=== PATIENT | male | born 1960 | race Caucasian/White ===

== ENCOUNTER 2016-10-27 12:37 | Emergency (ER) | payer BC ==
[~2016-10-27 12:37] MED LIST: ATOR10 PO; DOXY100T PO; ROSU5 PO; SULF-154 PO; TRELSTAR; ZYRT1SYP PO
[2016-10-27 12:45] VITALS: BP 152/92; PULSE 78; RESP 16; TEMP 98.3; O2SAT 96
[2016-10-27] MEDS ORDERED: CYMB60CA PO (12:53)
[2016-10-27] MEDS ORDERED: [UNRECOGNIZED DRUG - OTHER] (12:53)
[2016-10-27] MEDS ORDERED: AMBI10TA PO (12:53)
[2016-10-27] MEDS ORDERED: LUPR3.75 IM (12:53)
--- NOTE | 2016-10-27 12:57 | PD ---
HPI Chief Complaint: Laceration/Skin Injury Time Seen by Provider: 12:52 Travel History International Travel<30 days: No Contact w/Intl Traveler<30days: No Traveled to known affect area: No History of Present Illness HPI 56-year-old male presents to the emergency room for evaluation of left thumb laceration that occurred just prior to arrival. Patient was using a kitchen knife when he missed and cut his thumb. He immediately applied pressure and came to the emergency room. Reports moderate pain. Moderate bleeding. Unknown last tetanus. PFSH Past Medical History Cancer: Yes (PROSTATE) High Cholesterol: Yes Past Surgical History Abdominal Surgery: Yes (HERNIA X 2) Tonsillectomy: Yes Other Surgery: Yes (PENILE IMPLANT) Social History Alcohol Use: No Tobacco Use: No Substance Use: No Allergies-Medications (Allergen,Severity, Reaction): Coded Allergies: No Known Allergies (Verified , PER [facility] HOLDING, 10/27/16) Reported Meds & Prescriptions Reported Meds & Active Scripts Active Reported Lupron Depot Inj Kit (Leuprolide Acetate) 3.75 Mg Kit Unknown Dose IM ONCE Cymbalta DR (Duloxetine HCl) 60 Mg Capdr 90 Mg PO DAILY Ambien (Zolpidem Tartrate) 10 Mg Tab 12.5 Mg PO HS PRN [Exntend Eye] Review of Systems Except as stated in HPI: all other systems reviewed are Neg Physical Exam Narrative GENERAL: Well-nourished, well-developed male in no acute distress. Afebrile. Ambulatory. SKIN: Focused skin assessment warm/dry. There is a 1 cm curvilinear avulsion laceration to the left distal thumb. No nail involvement. HEAD: Normocephalic. EYES: No scleral icterus. No injection or drainage. NECK: Supple, trachea midline. No JVD or lymphadenopathy. CARDIOVASCULAR: Regular rate and rhythm without murmurs, gallops, or rubs. RESPIRATORY: Breath sounds equal bilaterally. No accessory muscle use. MUSCULOSKELETAL: No cyanosis, or edema. Less than 2 second capillary refill distally. Full range of motion of the left hand. Data Data Last Documented VS Vital Signs Date Time Temp Pulse Resp B/P (MAP) Pulse Ox O2 Delivery O2 Flow Rate FiO2 10/27/16 12:45 98.3 78 16 152/92 (112) 96 Room Air Orders Orders Bupivacaine Pf 0.5% Inj (Marcaine Pf 0.5 (10/27/16 13:00) Lidocaine 1% Inj (50 Ml) (Xylocaine 1% I (10/27/16 13:00) Tetanus/Diphtheria Tox Adult (Tetanus/Di (10/27/16 13:00) MDM Medical Decision Making Medical Screen Exam Complete: Yes Emergency Medical Condition: Yes Medical Record Reviewed: Yes Differential Diagnosis Laceration, avulsion, abrasion Narrative Course 56-year-old male presents to the emergency room for evaluation of laceration to his left thumb that occurred just prior to arrival. Patient accidentally cut himself with a kitchen knife. Tetanus was updated in the ER. Wound was thoroughly cleansed and repaired, see procedure note for details. Patient discharged with wound care instructions and told to follow-up with a PCP as needed and return for worsening symptoms. He understands and agrees to plan. Procedures Procedure Narrative LACERATION LOCATION: Left distal thumb LENGTH: 1 cm curvilinear NUMBER OF STITCHES/DARI: 4 simple interrupted REPAIR: The area of the laceration was prepped with Betadine and sterilely draped. Digital block was performed with 50/50 combination of 1% lidocaine and 0.5% bupivacaine. The wound was copiously irrigated and explored without evidence of foreign body, tendon injury or neurovascular injury. The wound was closed using 5-0 Prolene. This was a single layer repair. A sterile dressing was applied. The patient was advised to keep the dressing clean and dry. Patient tolerated the procedure well. Diagnosis Primary Impression: Laceration of left thumb Qualified Codes: S61.012A - Laceration without foreign body of left thumb without damage to nail, initial encounter Referrals: Primary Care Physician Additional Instructions: Rest and drink plenty of fluids. Keep wound clean and dry. Apply triple antibiotic ointment daily. Sutures out in 7-10 days Follow-up with a primary care physician. Return to the emergency room for worsening symptoms. Med/Other Pt SpecificInfo: Prescription(s) given Disposition: 01 DISCHARGE HOME Condition: Stable Sharonda Barron Oct 27, 2016 12:57
[2016-10-27] MEDS ORDERED: BUPIVACAINE HCL PF 0.5% 10 ML VIAL INFIL ONE (13:00)
[2016-10-27] MEDS ORDERED: LIDOCAINE HCL 1% 50 ML VIAL INFIL ONE (13:00)
[2016-10-27] MEDS ORDERED: TETANUS/DIPHTHERIA TOXOID ADULT 0.5 ML VIAL IM ONE (13:00)
== END 2016-10-27 14:14 | disposition home or self-care (01) ==
LOC: PHEFT 12:37
DX: S61.012A Laceration without foreign body of left thumb without damage to nail, initial encounter (principal); W26.0XXA Contact with knife, initial encounter; C61 Malignant neoplasm of prostate; Z23 Encounter for immunization
CPT/HCPCS: 12001; 90471; 90714